=== PATIENT | male | born 1950 | race Caucasian/White ===

== ENCOUNTER 2019-07-02 01:37 | Observation (INO) | payer OTHER, SELFPAY ==
--- NOTE | ~2019-07-02 | CT_ITS ---
EXAMINATION: CT abdomen pelvis w con DATE: 07/02/2019 05:19 INDICATION: Low abdominal pain. TECHNIQUE: Computed tomography (CT) of the abdomen and pelvis was performed with 100 mL Omnipaque 350 intravenous contrast. Automated exposure control and iterative reconstruction technique were employe d. The dose-length product was 871.48 mGy-cm. COMPARISON: CT abdomen and pelvis 06/11/2010 FINDINGS: The visualized portions of the lung bases demonstrate emphysema and mild atelectasis. No pl eural effusion. Cardiomegaly is noted. No pericardial effusion. There are changes of cholecystectomy. There is mild intrahepatic biliary duct dilatation. The common duct is dilated to 19 mm, worsened fr om 14 mm on 06/11/2010. A filling defect in the distal common duct is likely a stone. The pancreas, sp aneudy, and right adrenal gland are normal. There are masses in the left adrenal gland without change m easuring up to 13 mm, consistent with adenomas. There are cysts of the kidneys measuring up to 3.9 cm on the left. Cortical thinning of the kidneys is noted. There is a right inguinal hernia containing a portion of the bladder. The appendix is normal. The terminal ileum is dilated and stool-filled. The re is a small volume of stool in the colon. There is a small sliding hiatal hernia with adjacent surg ical clips. There are no pathologically enlarged lymph nodes. There is no free intraperitoneal fluid. There is mild lumbar spondylosis. IMPRESSION: 1. Intrahepatic and extrahepatic biliary duct dilatation with filling defect in the distal common sheela t, which is likely a stone. 2. Right inguinal hernia containing a portion of the bladder. Reviewed, dictated and finalized at location A. IMPRESSION: 1. Intrahepatic and extrahepatic biliary duct dilatation with filling defect in the distal common duct, which is likely a stone. 2. Right inguinal hernia containing a portion of the bladder.
--- NOTE | ~2019-07-02 | MR_ITS ---
EXAMINATION: MR MRCP wo/w con/w 3D wo ind DATE: 07/02/2019 16:01 INDICATION: Abdominal pain TECHNIQUE: Magnetic resonance imaging (MRI) of the abdomen was performed without and with intravenous contrast. Sequences included coronal T2-weighted SS-FSE ARC, coronal T2-weighted FS SS-FSE, coronal T2-weighted 2D FS FIESTA, Water:Coronal LAVA-Flex, sagittal T2-weighted SS-FSE ARC, axial SSFSE ARC, axial 3D DualEcho, axial DWI B=600, axial T1-weighted LAVA, FAT:Coronal LAVA-Flex, and coronal in and opposed phase LAVA-Flex. Thick-slab T2-weighted FRFSE-XL images were obtained for magnetic resonance cholangiopancreatography (MRCP). Maximum intensity projection 3-D reconstructions of the volumetric data were created by the technologist. Postcontrast sequences included a time course of axial T1-weig hted LAVA, FAT:Coronal LAVA-Flex, coronal in and opposed phase LAVA-Flex, and Water:Coronal LAVA-Flex . COMPARISON: 07/20/[address] from today CONTRAST: Multihance, 18 cc FINDINGS: ABDOMEN MRI: There is a small sliding hiatal hernia. Cardiomegaly is noted. The gallbladder is surgic ally absent. The liver, spleen, and pancreas are normal. Bilateral adrenal masses demonstrate loss of signal intensity on opposed phase images, consistent with cysts. Cysts of the kidneys measure up to 3.8 cm on the left. There are no pathologically enlarged abdominal lymph nodes. ABDOMEN MRCP: MRCP sequences are limited by respiratory motion artifact. There is no stone or strictu re of the common bile duct. The pancreatic duct is normal in course and caliber. The common bile duct measures up to 16 mm. IMPRESSION: 1. Chronic enlargement of the common bile duct without stone or stricture. Reviewed, dictated and finalized at location A.
[2019-07-02 01:42] VITALS: BP 137/75; PULSE 60; RESP 20; TEMP 36.3; O2SAT 98
[2019-07-02 02:39] LABS: Basophils Absolute Auto 0.1 K/mm3 (0.0-0.1); Basophils Percent Auto 0.5 % (0.2-1.2); Eosinophils Absolute Auto 0.2 K/mm3 (0-0.3); Eosinophils Percent Auto 1.3 % (0-4.4); Hematocrit 42.5 % (42.0-52.0); Hemoglobin 13.5 g/dL (14.0-18.0); Immature Granulocyte Absolute 0.07 K/mm3 (0.00-0.031); Immature Granulocyte Percent A 0.6 % (0-0.5); Lymphocytes Absolute Auto 1.18 K/mm3 (0.9-3.2); Lymphocytes Percent Auto 10.1 % (18.3-44.2); Mean Corpuscular HGB Conc 31.8 g/dl (32-36); Mean Corpuscular Volume 97.7 fl (80-100); Mean Platelet Volume 10.6 fl (7.4-10.4); Monocytes Absolute Auto 0.7 K/mm3 (0.1-0.6); Monocytes Percent Auto 5.6 % (2.6-8.5); Neutrophils Absolute Auto 9.6 K/mm3 (1.3-6.7); Neutrophils Percent Auto 81.9 % (45.5-73.1); Platelet Count Result 197 k/mm3 (150-375); Red Blood Count 4.35 M/mm3 (4.6-6.20); Red Cell Distribution Width 12.4 % (11.5-14.5); White Blood Count 11.7 K/mm3 (4.5-10.0)
[2019-07-02 02:44] LABS: Add Urine Microscopic? YES; Appearance Urine Clear (Clear); Bacteria Urine Trace /hpf; Bilirubin Urine Negative (Negative); Blood Urine Negative (Negative); Color Urine Yellow (Yellow); Glucose Urine UA Negative (Negative); Ketones Urine Negative (Negative); Leukocyte Esterase Ur Negative LEU/UL (Negative); Mucus Urine Rare /lpf; Nitrate Urine Negative (Negative); Protein Urine Negative (Negative); RBC Urine 0-2 /hpf (0-2); Specific Grav Ur 1.014 (1.001-1.035); Squamous Epithelial Cell Urine Rare /hpf (Few); Urobilinogen Urine Negative mg/dL (<2.0); WBC Urine 0-3 /hpf
[2019-07-02 02:51] LABS: Alanine Aminotransferase 184 U/L (4-50); Albumin Level 4.2 g/dL (3.5-5.1); Alkaline Phosphatase 196 U/L (38-126); Aspartate Amino Transferase 346 U/L (17-59); Bilirubin,Total 0.8 mg/dL (0.2-1.3); Blood Urea Nitrogen 25 mg/dL (9-20); Calcium 8.7 mg/dL (8.4-10.2); Carbon Dioxide 25 mmol/L (22-30); Chloride 109 mmol/L (98-107); Estimated Glomerular Filt Rate 43; Glucose 182 mg/dL (75-110); Lipase 147 U/L (23-300); Potassium 5.2 mmol/L (3.4-5.0); Sodium 139 mmol/L (137-145)
[2019-07-02] MEDS: PANTOPRAZOLE SODIUM IV 40 MG VIAL IV PUSH ×2 (04:49→20:50)
[2019-07-02] MEDS: HYDROMORPHONE HCL 1 MG/ML INJ IV PUSH (04:49)
[2019-07-02] MEDS: LACTATED RINGERS 1,000 ML 999 ML IV CONT (04:49)
[2019-07-02] MEDS: ONDANSETRON INJ 4 MG/2 ML VIAL IV PUSH ×4 (04:50→20:18)
--- NOTE | 2019-07-02 05:01 | ED.ABDPAIN ---
HPI - Abdominal Pain General Chief Complaint: Abdominal Pain Stated Complaint: abd pain Time Seen by Provider: 07/02/19 04:33 Source: patient Mode of arrival: ambulatory Limitations: no limitations History of Present Illness HPI narrative: This patient is 69 yo male who presents with c/o upper abdominal pain. Patient states he developed pain shortly after eating yesterday afternoon. He has been having constant pain but it worsens intermittently. He describes his pain as cramping. He denies nausea, vomiting, fever, or diarrhea. His last bowel movement was prior to his pain starting. He denies having similar pain in the past. MD elicited complaint: abdominal pain Onset (ago): day(s) Related Data Allergies Allergy/AdvReac Type Severity Reaction Status Date / Time No Known Allergies Allergy Verified 10/19/18 11:54 Review of Systems Review of Systems: All systems reviewed & are unremarkable except as noted in HPI and below Constitutional: Constitutional: Denies chills and Denies fever(s) Cardiovascular: Cardiovascular: Denies chest pain and Denies radiating jaw, neck or arm pain Respiratory: Respiratory: Denies cough and Denies dyspnea Gastrointestinal: Gastrointestinal: Reports abdominal pain, Denies constipation, Denies diarrhea, Denies nausea and Denies vomiting Genitourinary: Genitourinary: Denies hematuria and Denies oliguria [facility] Past Medical History Medical History (Updated 07/02/19 @ 06:43 by Sera Noel MD) History of gastric ulcer Surgical History Surgical History (Updated 07/02/19 @ 05:05 by Sera Noel MD) Hx of cholecystectomy Family History Family History (Updated 04/14/10 @ 08:02 by DOCTOR UNKNOWN) Other Diabetes mellitus Family history of Parkinson's disease Family history of malignant neoplasm of bone Social History Social History Smoking status: Former smoker Second hand tobacco smoke exposure: No Alcohol intake: never Exam Narrative: Exam Narrative: GENERAL: Well-appearing, well-nourished, mild distress HEAD: Normocephalic, atraumatic EYES: PERRLA and EOMI, conjunctiva clear without discharge THROAT:Mucous membranes moist, NECK: Supple, without lymphadenopathy or mass RESPIRATORY: No respiratory distress, Airway patent, Respirations non-labored, Clear to auscultation without rales, rhonchi or wheeze HEART: Regular rate and rhythm. No murmur heard. Normal peripheral pulses. ABDOMEN: Soft, Distended, diffusedly tender, hypoactive bowel sounds. No masses. No rebound or guarding, No organomegaly. EXTREMITIES: No edema, normal strength with full range of motion. SKIN: Warm, dry, normal color without rash NEURO: Alert and oriented x3. CN 2-12 grossly intact. No focal deficits. PSYCH: Normal mood and affect. Course Reevaluation(s) Reevaluation #1: Patient states his pain has completely resolved. He has no abdominal tenderness. I Discussed plan to admit and he is agreeable to assess common bile duct. Date: 07/02/19 Time: 06:44 Consultations Consultation #1: I discussed labs and CT report with Dr. Shukla who recommends patient be admitted for MRCP . He will see patient and determine if she needs ERCP. Date: 07/02/19 Time: 06:33 Consultation #2: I discussed case with DR. Escamilla who accepts patient to service. Date: 07/02/19 Time: 06:41 Vital Signs Vital signs: Vital Signs Temperature 97.4 F L 07/02/19 01:42 Pulse Rate 60 07/02/19 01:42 Respiratory Rate 20 07/02/19 01:42 Blood Pressure 137/75 07/02/19 01:42 Pulse Oximetry 98 07/02/19 01:42 Temperature 97.4 F L 07/02/19 01:42 Pulse Rate 90 07/02/19 07:25 Respiratory Rate 18 07/02/19 07:25 Blood Pressure 167/86 H 07/02/19 07:25 Pulse Oximetry 98 07/02/19 07:25 MDM - Abdominal Pain Lab Data Attestation: I reviewed the patient's lab results. Result diagrams: 07/02/19 02:32 07/02/19 02:32 Labs: Lab Results
[2019-07-02] MEDS: LACTATED RINGERS 1,000 ML 125 ML IV CONT (07:24)
[2019-07-02 07:25] VITALS: BP 167/86; PULSE 90; RESP 18; O2SAT 98
--- NOTE | 2019-07-02 07:25 | PC.NURSE ---
pt vomiting. ed okay with repeating zofran iv at this time
[2019-07-02 08:30] VITALS: BP 140/70; PULSE 93; RESP 18; TEMP 36.5; O2SAT 96; BMI 30.2
--- NOTE | 2019-07-02 08:30 | ADMGEN ---
This patient, Cyril Griffin, was admitted to Medical Room 247-. Patient/family oriented to hospital policies and general routines including ID bracelet, bed and alarms, visiting hours, pain management, procedures, bathroom and other care routines, personal items, smoking policy, room service/diet, and visiting hours. Valuables list has been completed. Information on how to activate the Rapid Response Team has been discussed. Patient/Family are encouraged to report perceived risks to care and to ask questions if they do not understand what they are told or what they should do.
--- NOTE | 2019-07-02 09:04 | PM.IMHP ---
H&P: HPI History of Present Illness Chief complaint: right upper abdominal pain/elevated lft Narrative: Cyril Griffin is a 69 year old male was in his usual state of health until about 60-90 minutes after eating lunch at 12:30 p.m. on 06/30. Between 130 and 2:00 p.m. he experienced moderate to severe epigastric to right upper quadrant pain without radiation. Persisted for about 1 hour. No aggravating or alleviating factors noted. Deep aching pain. Associated with drenching sweats. Pain recurred and about 7:00 p.m.. Again moderate to severe. Persisted about 1 hour. Again 11:00 p.m. the pain recurred. This time it persisted and intensified to 11/29. At 1:30 a.m. he his brought him the emergency department. Pain resolved after IV analgesics. He had a cholecystectomy about 2009. Pain is similar to that pain but does not radiate to the back. History of peptic ulcer disease at age 23 for which she had surgery. Pain is not similar to that. No recent change in bowel or bladder function. No melena hematochezia dysuria or hematuria. No recent change in appetite or weight. Review of Systems Review of Systems: All systems reviewed & are unremarkable except as noted in HPI and below PMFSH Past Medical History Medical History (Updated 07/02/19 @ 09:20 by Sherman Sanchez MD) Adrenal adenoma CKD (chronic kidney disease) stage 3, GFR 30-59 ml/min History of gastrectomy 1963 for History of gastric ulcer 1963 Hypertension, essential Other and unspecified hyperlipidemia Surgical History Surgical History (Updated 07/02/19 @ 09:10 by Sherman Sanchez MD) H/O vagotomy 1963 for Hx of cholecystectomy Family History Family History (Updated 07/02/19 @ 09:10 by Sherman Sanchez MD) Father No problems noted. Mother No problems noted. Other Diabetes mellitus Family history of Parkinson's disease Family history of malignant neoplasm of bone Social History Social History (Updated 07/02/19 @ 09:11 by Sherman Sanchez MD) Smoking status: Former smoker Second hand tobacco smoke exposure: No Alcohol intake: former Substance use: never Living arrangements: with family Occupation/Education: retired Meds Home Medications and Allergies Home Medications Medication Instructions Recorded Confirmed Type lisinopril 5 mg tablet 2.5 mg PO DAILY #45 tablet 04/08/19 Rx rosuvastatin 10 mg tablet 10 mg PO DAILY #90 tablet 05/08/19 Rx Allergies Allergy/AdvReac Type Severity Reaction Status Date / Time No Known Allergies Allergy Verified 10/19/18 11:54 Vital Signs Vital Signs - 24 hr 07/02/19 01:42 07/02/19 07:25 Temperature 97.4 F L Pulse Rate 60 90 Respiratory Rate 20 18 Blood Pressure 137/75 167/86 H Pulse Oximetry 98 98 Exam Narrative: Exam Narrative: HEENT: EOMI, PERRL, sclerae nonicteric, pharyngeal mucosa pink and intact NECK: No JVD, adenopathy, or thyromegaly; carotid pulses intact w/o bruits CHEST: Clear to auscultation. Normal effort. HEART: NL S1/S2, regular, no murmur ABDOMEN: BS+ but hypoactive, soft, TENDER EPIGASTRIC TO RUQ EXTREMITIES: No cyanosis, edema, or clubbing, radial and DP pulses intact NEUROLOGIC: CN intact and symmetric to inspection. MUSCULOSKELETAL: Tone and strength symmetric. PSYCH: Alert. Oriented to person, place, and time. H&P: Results Labs Labs: Short CBC 07/02/19 Range/Units 02:32 WBC 11.7 H (4.5-10.0) K/mm3 Hgb 13.5 L (14.0-18.0) g/dL Hct 42.5 (42.0-52.0) % Plt Count 197 (150-375) k/mm3 BMP 07/02/19 02:32 Sodium 139 Potassium 5.2 H Chloride 109 H Carbon Dioxide 25 BUN 25 H Creatinine 1.60 H Glucose 182 H Calcium 8.7 Liver Function 07/02/19 Range/Units 02:32 Total Bilirubin 0.8 (0.2-1.3) mg/dL AST 346 H (17-59) U/L ALT 184 H (4-50) U/L Alkaline Phosphatase 196 H (38-126) U/L Albumin 4.2 (3.5-5.1) g/dL Urine 07/02/19 Range/U
--- NOTE | 2019-07-02 09:42 | WPDGICN ---
Assessment and Plan Assessment and plan (1) Abdominal pain, acute, right upper quadrant: Code(s): R10.11 - Right upper quadrant pain Status: Acute Assessment and Plan: Abdominal pain suspicious for colo lithiasis. Patient has a history of cholecystectomy [address] scan suggest common bile duct gallstone. Elevated liver function tests likely on this basis. Patient denies alcohol intake. (2) Elevated liver function tests: Code(s): R79.89 - Other specified abnormal findings of blood chemistry Status: Acute Assessment and Plan: With elevated LFTs will check for hepatitis. Likely related to abnormality seen on CT scan. (3) Abnormal CT scan: Code(s): R93.89 - Abnormal findings on diagnostic imaging of other specified body structures Status: Acute Assessment and Plan: CT scan suggest common bile duct dilatation. Possible common bile duct gallstone. MRCP will be performed today to evaluate more thoroughly ERCP may be required in the morning. GI Consult Note Consult date/time: 07/02/19 09:42 HPI: Cyril Griffin is a 69 year old male seen in evaluation at the request of the emergency room. Patient reports being in usual state of health till after lunch yesterday. He ate at approximately 12:30 p.m.. About 2:00 a.m. in began to have right upper quadrant pain. This pain fluctuated in intensity throughout the evening. This prompted him to go to the emergency room last night. This morning he continues to have some right mid epigastric discomfort. Patient has had some nausea in only few episodes of emesis. He denies a fever. Past medical history is significant for cholecystectomy approximately 10 years ago. He reports having had peptic ulcer in his 20s. He reports no change in his current bowel habits. Review of Systems Review of Systems: All systems reviewed & are unremarkable except as noted in HPI and below PMFSH Past Medical History Medical History Adrenal adenoma CKD (chronic kidney disease) stage 3, GFR 30-59 ml/min History of gastrectomy 1963 for History of gastric ulcer 1964 Hypertension, essential Other and unspecified hyperlipidemia Surgical History Surgical History H/O vagotomy 1963 for Hx of cholecystectomy Family History Family History Father No problems noted. Mother No problems noted. Other Diabetes mellitus Family history of Parkinson's disease Family history of malignant neoplasm of bone Social History Social History Smoking status: Former smoker Second hand tobacco smoke exposure: No Alcohol intake: former Substance use: never Living arrangements: with family Occupation/Education: retired Meds Home Medications and Allergies Home Medications Medication Instructions Recorded Confirmed Type lisinopril 5 mg tablet 2.5 mg PO DAILY #45 tablet 04/08/19 Rx rosuvastatin 10 mg tablet 10 mg PO DAILY #90 tablet 05/08/19 Rx Allergies Allergy/AdvReac Type Severity Reaction Status Date / Time No Known Allergies Allergy Verified 10/19/18 11:54 Vital Signs Vital Signs - 24 hr 07/02/19 01:42 07/02/19 07:25 07/02/19 08:30 Temperature 36.3 C L 36.5 C Pulse Rate 60 90 93 Respiratory Rate 20 18 18 Blood Pressure 137/75 167/86 H 140/70 Pulse Oximetry 98 98 96 Exam Narrative: Exam Narrative: Physical exam reveals patient to be alert. Vital signs are stable. HEENT exam reveals him to be anicteric. Lungs are clear to auscultation and percussion. Heart is without murmur. Abdomen is bowel sounds are present. Abdomen is soft. There is mild tenderness in the right mid epigastric area. No masses are appreciated. Nor guarding or rebound. Results La
[2019-07-02 09:59] LABS: Hematocrit 40.7 % (42.0-52.0); Hemoglobin 13.1 g/dL (14.0-18.0); Mean Corpuscular HGB Conc 32.2 g/dl (32-36); Mean Corpuscular Hemoglobin 31.2 pg (26-34); Mean Corpuscular Volume 96.9 fl (80-100); Mean Platelet Volume 10.7 fl (7.4-10.4); Platelet Count Result 166 k/mm3 (150-375); Red Cell Distribution Width 12.5 % (11.5-14.5); White Blood Count 12.4 K/mm3 (4.5-10.0)
[2019-07-02 10:33] LABS: Alanine Aminotransferase 707 U/L (4-50); Albumin Level 3.9 g/dL (3.5-5.1); Alkaline Phosphatase 288 U/L (38-126); Bilirubin,Total 1.7 mg/dL (0.2-1.3); Blood Urea Nitrogen 24 mg/dL (9-20); Calcium 8.4 mg/dL (8.4-10.2); Carbon Dioxide 20 mmol/L (22-30); Chloride 110 mmol/L (98-107); Estimated CRCL calculation 54 ml/min; Estimated Glomerular Filt Rate 55; Glucose 205 mg/dL (75-110); Potassium 5.1 mmol/L (3.4-5.0); Sodium 138 mmol/L (137-145)
[2019-07-02 10:55] LABS: Aspartate Amino Transferase 1073 U/L (17-59)
[2019-07-02 13:37] LABS: Hematocrit 39.7 % (42.0-52.0); Mean Corpuscular HGB Conc 32.7 g/dl (32-36); Mean Corpuscular Hemoglobin 31.5 pg (26-34); Mean Corpuscular Volume 96.1 fl (80-100); Mean Platelet Volume 10.6 fl (7.4-10.4); Platelet Count Result 174 k/mm3 (150-375); Red Blood Count 4.13 M/mm3 (4.6-6.20); Red Cell Distribution Width 12.5 % (11.5-14.5); White Blood Count 14.3 K/mm3 (4.5-10.0)
[2019-07-02 13:58] LABS: Albumin Level 3.9 g/dL (3.5-5.1); Alkaline Phosphatase 335 U/L (38-126); Bilirubin,Total 1.5 mg/dL (0.2-1.3); Blood Urea Nitrogen 23 mg/dL (9-20); Calcium 8.6 mg/dL (8.4-10.2); Carbon Dioxide 23 mmol/L (22-30); Chloride 108 mmol/L (98-107); Estimated CRCL calculation 54 ml/min; Estimated Glomerular Filt Rate 55; Glucose 201 mg/dL (75-110); Potassium 4.3 mmol/L (3.4-5.0); Sodium 138 mmol/L (137-145)
[2019-07-02 14:00] VITALS: BP 137/77; PULSE 85; RESP 17; TEMP 36.7; O2SAT 95
[2019-07-02 14:31] LABS: Alanine Aminotransferase 990 U/L (4-50); Aspartate Amino Transferase 1255 U/L (17-59)
[2019-07-02 15:48] LABS: Hepatitis B Surface Antigen Negative (Negative)
[2019-07-02 15:53] LABS: HAV RESULT Negative (Negative)
[2019-07-02 16:06] LABS: Hepatitis C Virus Antibody Negative (Negative)
[2019-07-02] MEDS: FAMOTIDINE 20 MG/2 ML VIAL IV PUSH (19:24)
[2019-07-02 22:00] VITALS: BP 161/64; PULSE 57; RESP 20; TEMP 36.2; O2SAT 95
[2019-07-03] MEDS: LACTATED RINGERS 1,000 ML 125 ML IV CONT (01:43)
[2019-07-03] MEDS: ONDANSETRON INJ 4 MG/2 ML VIAL IV PUSH (01:49)
[2019-07-03 05:25] LABS: Alanine Aminotransferase 718 U/L (4-50); Albumin Level 3.8 g/dL (3.5-5.1); Alkaline Phosphatase 262 U/L (38-126); Aspartate Amino Transferase 472 U/L (17-59); Bilirubin,Total 0.4 mg/dL (0.2-1.3); Blood Urea Nitrogen 24 mg/dL (9-20); Calcium 8.6 mg/dL (8.4-10.2); Carbon Dioxide 23 mmol/L (22-30); Chloride 109 mmol/L (98-107); Estimated CRCL calculation 50 ml/min; Estimated Glomerular Filt Rate 50; Glucose 154 mg/dL (75-110); Lipase 63 U/L (23-300); Potassium 4.3 mmol/L (3.4-5.0); Sodium 138 mmol/L (137-145)
[2019-07-03 05:31] LABS: Basophils Percent Auto 0.2 % (0.2-1.2); Hematocrit 36.7 % (42.0-52.0); Immature Granulocyte Absolute 0.09 K/mm3 (0.00-0.031); Immature Granulocyte Percent A 0.6 % (0-0.5); Lymphocytes Absolute Auto 0.93 K/mm3 (0.9-3.2); Lymphocytes Percent Auto 5.9 % (18.3-44.2); Mean Corpuscular HGB Conc 32.7 g/dl (32-36); Mean Corpuscular Hemoglobin 31.2 pg (26-34); Mean Corpuscular Volume 95.3 fl (80-100); Mean Platelet Volume 11.2 fl (7.4-10.4); Monocytes Absolute Auto 0.8 K/mm3 (0.1-0.6); Monocytes Percent Auto 4.8 % (2.6-8.5); Neutrophils Absolute Auto 13.9 K/mm3 (1.3-6.7); Neutrophils Percent Auto 88.5 % (45.5-73.1); Platelet Count Result 193 k/mm3 (150-375); Red Blood Count 3.85 M/mm3 (4.6-6.20); Red Cell Distribution Width 12.6 % (11.5-14.5); White Blood Count 15.7 K/mm3 (4.5-10.0)
[2019-07-03 05:50] VITALS: BP 169/79; PULSE 50; RESP 16; TEMP 36.8; O2SAT 96
[2019-07-03 08:00] VITALS: PULSE 75; RESP 16; O2SAT 97
[2019-07-03 08:52] VITALS: BP 158/68; PULSE 75; RESP 16; O2SAT 97
[2019-07-03] MEDS: PANTOPRAZOLE SODIUM IV 40 MG VIAL IV PUSH (08:57)
--- NOTE | 2019-07-03 09:07 | PM.IMPN ---
Subjective Date/time seen: 07/03/19 09:07 Objective Data Vital Signs Vital Signs: Vital Signs - 24 hr 07/02/19 14:00 07/02/19 22:00 07/03/19 05:50 Temperature 98.0 F 97.2 F L 98.3 F Pulse Rate 85 57 L 50 L Respiratory Rate 17 20 16 Blood Pressure 137/77 161/64 H 169/79 H Pulse Oximetry 95 95 96 07/03/19 08:52 Temperature Pulse Rate 75 Respiratory Rate 16 Blood Pressure 158/68 H Pulse Oximetry 97 Intake/Output Intake/Output: Intake & Output 06/30/19 07/01/19 07/02/19 07/03/19 23:59 23:59 23:59 23:59 Intake Total 2300 150 Output Total 400 Balance 2300 -250 Meds/Results Medications: Active Medications Generic Name Dose Route Start Last Admin Trade Name Freq PRN Reason Stop Dose Admin Hydralazine HCl 10 mg 07/02/19 09:23 Apresoline Hcl Inj IV PUSH Q8H PRN Blood Pressure - High Hydromorphone HCl 1 mg 07/02/19 06:45 Dilaudid Inj IV PUSH Q4H PRN Pain Rated 7-10 Lactated Ringer's 1,000 mls @ 125 mls/hr 07/02/19 06:45 07/03/19 01:43 Lr - Lactated Ringers Iv IV CONT 125 mls/hr .Q8H DESTINY Administration Ceftriaxone Sodium/Dextrose 1 gm in 50 mls @ 100 mls/hr 07/02/19 09:00 07/03/19 08:56 Rocephin 1 Gm/D5w 50 Ml IVPB 100 mls/hr Q24H DESTINY Administration Ondansetron HCl 4 mg 07/02/19 06:45 07/03/19 01:49 Zofran Inj IV PUSH 4 mg Q4H PRN Administration Nausea Pantoprazole Sodium 40 mg 07/02/19 21:00 07/03/19 08:57 Protonix Iv IV PUSH 40 mg Q12HR DESTINY Administration Radiology Results: ITS Impressions Abdomen/Pelvis CT 07/02/19 07:27 IMPRESSION: 1. Intrahepatic and extrahepatic biliary duct dilatation with filling defect in the distal common duct, which is likely a stone. 2. Right inguinal hernia containing a portion of the bladder. MRCP 07/02/19 16:11 IMPRESSION: 1. Chronic enlargement of the common bile duct without stone or stricture. Labs Labs: Laboratory Results - last 24 hr 07/02/19 07/02/19 07/02/19 09:32 09:32 13:26 WBC 12.4 H 14.3 H RBC 4.20 L 4.13 L Hgb 13.1 L 13.0 L Hct 40.7 L 39.7 L MCV 96.9 96.1 MCH 31.2 31.5 MCHC 32.2 32.7 RDW 12.5 12.5 Plt Count 166 174 MPV 10.7 H 10.6 H Immature Gran % (Auto) Neut % (Auto) Lymph % (Auto) [place] % (Auto) Eos % (Auto) Baso % (Auto) Lymph # (Auto) [place] # (Auto) Eos # (Auto) Baso # (Auto) Abs Immat Gran (auto) Absolute Neuts (auto) Absolute Nucleated RBC Nucleated RBC % Sodium 138 Potassium 5.1 H Chloride 110 H Carbon Dioxide 20 L BUN 24 H Creatinine 1.30 Estim Creat Clear Calc 54 Estimated GFR 55 L Glucose 205 H Calcium 8.4 Total Bilirubin 1.7 H AST 1073 H ALT 707 H Alkaline Phosphatase 288 H Total Protein 7.0 Albumin 3.9 Lipase Hepatitis A IgM Ab Hep Bs Antigen Hepatitis C Ab Screen 07/02/19 07/02/19 07/03/19 13:26 13:26 04:43 WBC 15.7 H RBC 3.85 L Hgb 12.0 L Hct 36.7 L MCV 95.3 MCH 31.2 MCHC 32.7 RDW 12.6 Plt Count 193 MPV 11.2 H Immature Gran % (Auto) 0.6 H Neut % (Auto) 88.5 H Lymph % (Auto) 5.9 L [place] % (Auto) 4.8 Eos % (Auto) 0.0 Baso % (Auto) 0.2 Lymph # (Auto) 0.93 [place] # (Auto) 0.8 H Eos # (Auto) 0.0 Baso # (Auto) 0.0 Abs Immat Gran (auto) 0.09 H Absolute Neuts (auto) 13.9 H Absolute Nucleated RBC 0.0 Nucleated RBC % 0.0 Sodium 138 Potassium 4.3 Chloride 108 H Carbon Dioxide 23 BUN 23 H Creatinine 1.30 Estim Creat Clear Calc 54 Estimated GFR 55 L Glucose 201 H Calcium 8.6 Total Bilirubin 1.5 H AST 1255 H ALT 990 H Alkaline Phosphatase 335 H Total Protein 7.0 Albumin 3.9 Lipase Hepatitis A IgM Ab Negative Hep Bs Antigen Negative Hepatitis C Ab Screen Negative 07/03/19 04:43 WBC RBC Hgb Hct MCV MCH MC
--- NOTE | 2019-07-03 09:10 | WPDGIPROGNO ---
Progress Note: A&P Additional Plan Patient feeling better this morning. Physical exam reveals patient to be obese. Bowel sounds are present soft much less tender. MRCP today reveals no evidence of common bile duct gallstone. There is evidence of previous gastrojejunostomy on x-ray studies. Impression 1. Elevated LFTs. May represent hepatitis. No evidence of gallstones by MRCP. Previous gastrojejunostomy makes ERCP not feasible. MRCP with absence of gallstones make this a necessary. Plan is to check hepatitis serologies increase diet. Follow up LFTs as an outpatient. Subjective Date/time seen: 07/03/19 09:10 Objective Data Vital Signs Vital Signs: Vital Signs - 24 hr 07/02/19 14:00 07/02/19 22:00 07/03/19 05:50 Temperature 36.7 C 36.2 C L 36.8 C Pulse Rate 85 57 L 50 L Respiratory Rate 17 20 16 Blood Pressure 137/77 161/64 H 169/79 H Pulse Oximetry 95 95 96 07/03/19 08:52 Temperature Pulse Rate 75 Respiratory Rate 16 Blood Pressure 158/68 H Pulse Oximetry 97 Intake/Output Intake/Output: Intake & Output 06/30/19 07/01/19 07/02/19 07/03/19 23:59 23:59 23:59 23:59 Intake Total 2300 150 Output Total 400 Balance 2300 -250 Meds/Results Medications: Active Medications Generic Name Dose Route Start Last Admin Trade Name Freq PRN Reason Stop Dose Admin Famotidine 40 mg 07/03/19 09:07 Pepcid Iv IV PUSH 07/03/19 09:08 ONCE ONE Hydralazine HCl 10 mg 07/02/19 09:23 Apresoline Hcl Inj IV PUSH Q8H PRN Blood Pressure - High Hydromorphone HCl 1 mg 07/02/19 06:45 Dilaudid Inj IV PUSH Q4H PRN Pain Rated 7-10 Lactated Ringer's 1,000 mls @ 125 mls/hr 07/02/19 06:45 07/03/19 01:43 Lr - Lactated Ringers Iv IV CONT 125 mls/hr .Q8H DESTINY Administration Ceftriaxone Sodium/Dextrose 1 gm in 50 mls @ 100 mls/hr 07/02/19 09:00 07/03/19 08:56 Rocephin 1 Gm/D5w 50 Ml IVPB 100 mls/hr Q24H DESTINY Administration Ondansetron HCl 4 mg 07/02/19 06:45 07/03/19 01:49 Zofran Inj IV PUSH 4 mg Q4H PRN Administration Nausea Pantoprazole Sodium 40 mg 07/02/19 21:00 07/03/19 08:57 Protonix Iv IV PUSH 40 mg Q12HR DESTINY Administration Radiology Results: ITS Impressions Abdomen/Pelvis CT 07/02/19 07:27 IMPRESSION: 1. Intrahepatic and extrahepatic biliary duct dilatation with filling defect in the distal common duct, which is likely a stone. 2. Right inguinal hernia containing a portion of the bladder. MRCP 07/02/19 16:11 IMPRESSION: 1. Chronic enlargement of the common bile duct without stone or stricture. Labs Labs: Laboratory Results - last 24 hr 07/02/19 07/02/19 07/02/19 09:32 09:32 13:26 WBC 12.4 H 14.3 H RBC 4.20 L 4.13 L Hgb 13.1 L 13.0 L Hct 40.7 L 39.7 L MCV 96.9 96.1 MCH 31.2 31.5 MCHC 32.2 32.7 RDW 12.5 12.5 Plt Count 166 174 MPV 10.7 H 10.6 H Immature Gran % (Auto) Neut % (Auto) Lymph % (Auto) [place] % (Auto) Eos % (Auto) Baso % (Auto) Lymph # (Auto) [place] # (Auto) Eos # (Auto) Baso # (Auto) Abs Immat Gran (auto) Absolute Neuts (auto) Absolute Nucleated RBC Nucleated RBC % Sodium 138 Potassium 5.1 H Chloride 110 H Carbon Dioxide 20 L BUN 24 H Creatinine 1.30 Estim Creat Clear Calc 54 Estimated GFR 55 L Glucose 205 H Calcium 8.4 Total Bilirubin 1.7 H AST 1073 H ALT 707 H Alkaline Phosphatase 288 H Total Protein 7.0 Albumin 3.9 Lipase Hepatitis A IgM Ab Hep Bs Antigen Hepatitis C Ab Screen 07/02/19 07/02/19 07/03/19 13:26 13:26 04:43 WBC 15.7 H RBC 3.85 L Hgb 12.0 L Hct 36.7 L MCV 95.3 MCH 31.2 MCHC 32.7 RDW 12.6 Plt Count 193 MPV 11.2 H Immature Gran % (Auto) 0.6 H Neut % (Auto) 88.5 H Lymph % (Auto) 5.9 L [place] % (Auto) 4.8 Eos % (Auto) 0.0 Baso % (Auto) 0.2 [place]
--- NOTE | 2019-07-03 10:56 | PM.DS ---
DS: Summary Hospital Course Reason for hospitalization: ruq pain Hospital Course: RUQ pain with elevated LFTs. CT suggested dilated ducts. Prior janel. MRCP no stone. Presumably passed. Received rocephin empirically. LFTs declining. Discharged to f/u labs and w/ GI as outpt. Status at Discharge Functional status at discharge: independent ambulation Overall status at discharge: patient is progressing back to baseline Time Spent with Patient Time attestation: Total time spent providing and/or coordinating discharge services: Time spent: Greater than 30 minutes Exam Narrative: Exam Narrative: Alert. Ox3. No jvd. Chest cta. Heart rr Abd soft, good bs, nontender extr no cce neuro cn intact to inspection ms tone and strength symmetric DS: Data Data Completed and Pending Labs on day of discharge: Labs from last 24 hours 07/03/19 07/03/19 07/02/19 04:43 04:43 13:26 WBC 15.7 H RBC 3.85 L Hgb 12.0 L Hct 36.7 L MCV 95.3 MCH 31.2 MCHC 32.7 RDW 12.6 Plt Count 193 MPV 11.2 H Immature Gran % (Auto) 0.6 H Neut % (Auto) 88.5 H Lymph % (Auto) 5.9 L [place] % (Auto) 4.8 Eos % (Auto) 0.0 Baso % (Auto) 0.2 Lymph # (Auto) 0.93 [place] # (Auto) 0.8 H Eos # (Auto) 0.0 Baso # (Auto) 0.0 Abs Immat Gran (auto) 0.09 H Absolute Neuts (auto) 13.9 H Absolute Nucleated RBC 0.0 Nucleated RBC % 0.0 Sodium 138 Potassium 4.3 Chloride 109 H Carbon Dioxide 23 BUN 24 H Creatinine 1.40 H Estim Creat Clear Calc 50 Estimated GFR 50 L Glucose 154 H Calcium 8.6 Total Bilirubin 0.4 AST 472 H ALT 718 H Alkaline Phosphatase 262 H Total Protein 6.0 L Albumin 3.8 Lipase 63 Hepatitis A IgM Ab Negative Hep Bs Antigen Negative Hepatitis C Ab Screen Negative 07/02/19 07/02/19 13:26 13:26 WBC 14.3 H RBC 4.13 L Hgb 13.0 L Hct 39.7 L MCV 96.1 MCH 31.5 MCHC 32.7 RDW 12.5 Plt Count 174 MPV 10.6 H Immature Gran % (Auto) Neut % (Auto) Lymph % (Auto) [place] % (Auto) Eos % (Auto) Baso % (Auto) Lymph # (Auto) [place] # (Auto) Eos # (Auto) Baso # (Auto) Abs Immat Gran (auto) Absolute Neuts (auto) Absolute Nucleated RBC Nucleated RBC % Sodium 138 Potassium 4.3 Chloride 108 H Carbon Dioxide 23 BUN 23 H Creatinine 1.30 Estim Creat Clear Calc 54 Estimated GFR 55 L Glucose 201 H Calcium 8.6 Total Bilirubin 1.5 H AST 1255 H ALT 990 H Alkaline Phosphatase 335 H Total Protein 7.0 Albumin 3.9 Lipase Hepatitis A IgM Ab Hep Bs Antigen Hepatitis C Ab Screen Discharge Plan Discharge Consulting providers: Ishaan Shukla ; Dom Addison ; Arnel Wren V. Discharging Clinician: Sherman Sanchez Patient Disposition: Home, Self-Care Activity: as tolerated Diet: heart healthy Patient Instructions: Antibiotic Form, Pain Management (GEN) Stand Alone Forms: General Discharge Information Follow-up/Referrals: Ishaan Shukla MD [Physician] - 1 Week Scooter Reyes MD [Primary Care Provider] - Call for Appointment Discharge Medications: Continued nabumetone 750 mg tablet 750 mg PO BID RF: 0 aspirin [Adult Low Dose Aspirin] 81 mg Tablet,Delayed Release (Dr/Ec) 81 mg PO DAILY RF: 0 esomeprazole magnesium 40 mg capsule,delayed release(DR/EC) 40 mg PO DAILY RF: 0 lisinopril 5 mg tablet 2.5 mg PO DAILY Qty: 45 RF: 3 rosuvastatin [Crestor] 10 mg tablet 10 mg PO DAILY Qty: 90 RF: 0 No Action carvedilol phosphate 40 mg capsule, ER multiphase 24 hr 40 mg PO DAILY Qty: 90 RF: 1 Other Ambulatory Orders: Eviro-[id number]-[id number] (AAT) Phen (Routine) Timeframe: 1 Week Location: Determined by Patient Ordered By: Ishaan Shukla Anti Nuclear Antibody Screen (Routine) Timeframe: 1 Week Location: Determined by Patient Ordered By: Ishaan Shukla Anti Henry Antibody (Rou
== END 2019-07-03 12:30 | disposition home or self-care (01) ==
LOC: ANHED 06:47 → ANH2MED 09:50
PROVIDERS: Admitting Provider Family Medicine; Emergency Provider General Practice; PCP Family Medicine; Visit Provider Internal Medicine
DX: R10.11 Right upper quadrant pain (principal); R79.89 Other specified abnormal findings of blood chemistry; R93.89 Abnormal findings on diagnostic imaging of other specified body structures; I12.9 Hypertensive chronic kidney disease with stage 1 through stage 4 chronic kidney disease, or unspecified chronic kidney disease; N18.3 Chronic kidney disease, stage 3 (moderate); E78.5 Hyperlipidemia, unspecified; D35.00 Benign neoplasm of unspecified adrenal gland; E66.9 Obesity, unspecified; Z68.30 Body mass index [BMI] 30.0-30.9, adult; Z79.899 Other long term (current) drug therapy
CPT/HCPCS: 36415; 74177; 74183; 76376; 80053; 81001; 83690; 85025; 85027; 86709; 86803; 87340; 96361; 96365; 96366; 96375; 96376; 99285; A9577; C9113; G0378; J0696; J1170; J2405; J7120; Q9967

== ENCOUNTER 2020-09-28 11:40 | Outpatient (CLI) | payer MEDICARE, SELFPAY ==
--- NOTE | ~2020-09-28 | CT_ITS ---
EXAMINATION: CT abdomen pelvis wo con DATE: 09/28/2020 13:07 INDICATION: Abdominal pain TECHNIQUE: Computed tomography (CT) of the abdomen and pelvis was performed without intravenous contr ast. Automated exposure control and iterative reconstruction technique were employed. Exam dose: 832 .27 mGy-cm total exam DLP. COMPARISON: 07/02/2019 CT abdomen pelvis 07/02/2019 and MR MRCP FINDINGS: There are moderate emphysematous changes. There is mild dependent atelectasis in the lower lungs. Heart size is within normal range. There are prominent coronary artery calcifications. Small sliding hiatal hernia. There are surgical clips adjacent to the hiatal hernia. There is evidence of cholelithiasis and/or milk of calcium bile within the gallbladder lumen. There i s mild pericholecystic fat stranding. Acute cholecystitis is not excluded. Consider gallbladder ultra sound examination. No hepatic, splenic, pancreatic space-occupying mass lesion. Probable bilateral small adrenal adenomas. Bilateral renal probable cysts, measuring up to 1.5 cm on the right, 4.2 cm on the left. Normal appendix. Diverticulosis of the colon; no CT evidence of diverticulitis. No bowel obstruction, bowel wall thickening, pneumatosis or intraperitoneal free air. There is moderate prostate enlargement. There are multiple prostate calcifications. There is mild dif fuse thickening of the urinary bladder wall. Small fat-containing right inguinal hernia. Small fat-containing umbilical hernia. Normal caliber of the abdominal aorta. No intraperitoneal or retroperitoneal or pelvic mass lesion or adenopathy or ascites. No suspicious osteolytic or osteoblastic lesions are noted. IMPRESSION: Cholelithiasis and/or milk of calcium bile seminal mild pericholecystic fat stranding. A cute cholecystitis is not excluded. Consider gallbladder ultrasound examination Small sliding hiatal hernia Small bilateral probable adrenal adenomas Bilateral renal cysts Normal appendix Prostate enlargement and calcification Small fat-containing right inguinal hernia Reviewed, dictated and finalized at [facility]. Reviewed, dictated and finalized at [facility]. IMPRESSION: Cholelithiasis and/or milk of calcium bile seminal mild pericholec ystic fat stranding. Acute cholecystitis is not excluded. Consider gallbladder ultrasound examination Small sliding hiatal hernia Small bilateral probable adrenal adenomas Bilateral renal cysts Normal appendix Prostate enlargement and calcification Small fat-containing right inguinal hernia
[2020-09-28 12:43] LABS: Estimated Glomerular Filt Rate 27
== END 2020-09-28 11:41 | disposition home or self-care (01) ==
PROVIDERS: PCP Family Medicine; Visit Provider Physician Assistant Medical
DX: R10.9 Unspecified abdominal pain (principal); K44.9 Diaphragmatic hernia without obstruction or gangrene; N28.1 Cyst of kidney, acquired; N40.0 Benign prostatic hyperplasia without lower urinary tract symptoms; K40.90 Unilateral inguinal hernia, without obstruction or gangrene, not specified as recurrent; K80.20 Calculus of gallbladder without cholecystitis without obstruction
CPT/HCPCS: 74176

== ENCOUNTER 2020-09-28 17:13 | Emergency (ER) | payer MEDICARE, SELFPAY ==
[2020-09-28] VITALS (21 sets, daily range): BP systolic 166–188; BP diastolic 74–106; PULSE 56–83; RESP 18; TEMP 35.9; O2SAT 92–100
[2020-09-28 18:16] LABS: Basophils Absolute Auto 0.1 K/mm3 (0.0-0.1); Basophils Percent Auto 0.6 % (0.2-1.2); Eosinophils Absolute Auto 0.1 K/mm3 (0-0.3); Eosinophils Percent Auto 0.9 % (0-4.4); Hematocrit 40.8 % (42.0-52.0); Hemoglobin 13.4 g/dL (14.0-18.0); Immature Granulocyte Absolute 0.02 K/mm3 (0.00-0.031); Immature Granulocyte Percent A 0.2 % (0-0.5); Lymphocytes Percent Auto 10.3 % (18.3-44.2); Mean Corpuscular HGB Conc 32.8 g/dl (32-36); Mean Corpuscular Hemoglobin 32.1 pg (26-34); Mean Corpuscular Volume 97.8 fl (80-100); Mean Platelet Volume 10.1 fl (7.4-10.4); Monocytes Absolute Auto 0.7 K/mm3 (0.1-0.6); Monocytes Percent Auto 6.5 % (2.6-8.5); Neutrophils Absolute Auto 8.7 K/mm3 (1.3-6.7); Neutrophils Percent Auto 81.5 % (45.5-73.1); Platelet Count Result 228 k/mm3 (150-375); Red Blood Count 4.17 M/mm3 (4.6-6.20); Red Cell Distribution Width 11.8 % (11.5-14.5); White Blood Count 10.7 K/mm3 (4.5-10.0)
[2020-09-28 18:27] LABS: Alanine Aminotransferase 36 U/L (4-50); Albumin Level 4.7 g/dL (3.5-5.1); Alkaline Phosphatase 155 U/L (38-126); Anion Gap 10 mmol/L (8-16); Aspartate Amino Transferase 31 U/L (17-59); Bilirubin,Total 0.4 mg/dL (0.2-1.3); Blood Urea Nitrogen 36 mg/dL (9-20); Calcium 9.3 mg/dL (8.4-10.2); Carbon Dioxide 23 mmol/L (22-30); Chloride 100 mmol/L (98-107); Estimated CRCL calculation 25 ml/min; Estimated Glomerular Filt Rate 30; Glucose 134 mg/dL (65-110); Lipase 88 U/L (23-300); Potassium 5.1 mmol/L (3.4-5.0); Sodium 133 mmol/L (137-145)
[2020-09-28 18:49] LABS: Add Urine Microscopic? YES; Appearance Urine Clear (Clear); Bilirubin Urine Negative (Negative); Blood Urine Negative (Negative); Color Urine Straw (Yellow); Glucose Urine UA Negative (Negative); Ketones Urine 1+ mg/dL (Negative); Leukocyte Esterase Ur 1+ LEU/UL (Negative); Nitrate Urine Negative (Negative); Protein Urine Negative (Negative); RBC Urine 0-2 /hpf (0-2); Specific Grav Ur 1.012 (1.001-1.035); Squamous Epithelial Cell Urine Rare /hpf (Few); Urobilinogen Urine Negative mg/dL (<2.0)
--- NOTE | 2020-09-28 21:33 | ECG_ITS ---
Measurements Intervals Floyd Rate: 48 P: 62 SC: 165 QRS: -38 QRSD: 127 T: -8 QT: 427 QTc: 383 Interpretive Statements SINUS BRADYCARDIA LEFT AXIS DEVIATION IVCD, CONSIDER ATYPICAL LBBB BORDERLINE T WAVE ABNORMALITY- INFERIOR LEADS ABNORMAL ECG Electronically Signed On 09-29-2020 15:16:10 CDT by Tim Nathan D.O.
--- NOTE | 2020-09-28 21:51 | ED.ABDPAIN ---
HPI - Abdominal Pain General Chief Complaint: Abdominal Pain Stated Complaint: Abd pain Time Seen by Provider: 09/28/20 20:40 Source: patient and RN notes reviewed Mode of arrival: ambulatory Limitations: no limitations History of Present Illness HPI narrative: This is a 70 year old male who presents for evaluation of epigastric pain. His pain started last night at 7 pm, and it has been constant until tonight. He describes his pain as burning stomach with sharp shooting pain. He states his sharp pain has resolved but he continues to have burning pain. He was evaluated by his PCP this morning, and he had outpatient labs with CT without contrast. He states he was told it shows possible gallbladder disease but he had cholecystectomy years ago. He has not taken anything for his pain. He has nausea but he denies vomiting, diarrhea, fever, chest pain or shortness of breath. He denies pain worse with exertion. He is unsure if his pain will be worse with eating because he has not eaten today. He rates pain 5/10. Related Data Home Medications Medication Instructions Recorded Confirmed aspirin [Adult Low Dose Aspirin] 81 mg PO DAILY 07/02/19 09/28/20 Allergies Allergy/AdvReac Type Severity Reaction Status Date / Time No Known Allergies Allergy Verified 09/28/20 19:22 Review of Systems Review of Systems: All systems reviewed & are unremarkable except as noted in HPI and below PMFSH Past Medical History Medical History Adrenal adenoma BMI 30.0-30.9,adult BMI greater than 30 BPH (benign prostatic hyperplasia) CKD (chronic kidney disease) stage 3, GFR 30-59 ml/min History of gastrectomy 1963 for History of gastric ulcer 1963 Hypertension, essential Other and unspecified hyperlipidemia Surgical History Surgical History H/O vagotomy 1963 for Hx of cholecystectomy Family History Family History Father No problems noted. Mother No problems noted. Other Diabetes mellitus Family history of Parkinson's disease Family history of malignant neoplasm of bone Social History Social History Smoking packs per day: 3 Smoking cigarettes per day: 60.0 Years smoked: 40 Smoking pack-years: 120.00 Tobacco type: cigarettes Second hand tobacco smoke exposure: No Alcohol intake: former Substance use: never Substance use type: does not use Gender identity (if verbalized by the patient): Male Spiritual care concerns: No Exam Const: General: no acute distress and alert Orientation/consciousness: patient oriented x3 Eyes: EOM: EOMs intact bilaterally Chest: Chest palpation & inspection: normal inspection of the chest Resp: Effort & Inspection: normal respiratory effort and no retractions Auscultation: clear to auscultation bilaterally Cardio: Rate: regular rate Rhythm: regular rhythm Heart sounds: no murmurs GI: GI Palp: Yes Soft to palpation, No Tenderness to palpation present (GI) and No Guarding due to palpation present (GI) Auscultation: normal bowel sounds Skin: General skin exam: normal color Rashes: no rashes Neuro: General: patient oriented x3 and CN's II-XI intact bilaterally Psych: Mental Status: mental status grossly normal Affect: normal affect Course Reevaluation(s) Reevaluation #1: PAtient states he feels better. I Reviewed labs and he has chronic renal disease. He will follow up with PCP. I discussed this may be related to PUD. Date: 09/28/20 Time: 23:21 Vital Signs Vital signs: Vital Signs Temperature 96.7 F L 09/28/20 17:57 Pulse Rate 83 09/28/20 17:57 Respiratory Rate 18 09/28/20 17:57 Blood Pressure 166/106 H 09/28/20 17:57 Pulse Oximetry 100 09/28/20 17:57 Temperature 96.7 F L
[2020-09-28] MEDS: DICYCLOMINE HCL INJ 20 MG/2 ML VIAL IM (21:55)
[2020-09-28] MEDS: BELLADONNA ALK/PHENOB ELIX 10 ML, MAG HYDROX/ALUMINUM HYD/SIMETH 30 ML, LIDOCAINE HCL 2... PO (21:56)
[2020-09-28] MEDS: PANTOPRAZOLE SODIUM IV 40 MG VIAL IV PUSH (21:56)
[2020-09-28] MEDS: SODIUM CHLORIDE 0.9% IV 500 ML 999 ML IV CONT (21:56)
== END 2020-09-28 23:39 | disposition home or self-care (01) ==
PROVIDERS: Emergency Medicine; Emergency Provider General Practice; PCP Family Medicine
DX: R10.13 Epigastric pain (principal); Z79.82 Long term (current) use of aspirin; N40.0 Benign prostatic hyperplasia without lower urinary tract symptoms; I12.9 Hypertensive chronic kidney disease with stage 1 through stage 4 chronic kidney disease, or unspecified chronic kidney disease; N18.30 Chronic kidney disease, stage 3 unspecified; F17.210 Nicotine dependence, cigarettes, uncomplicated; R00.1 Bradycardia, unspecified; R94.31 Abnormal electrocardiogram [ECG] [EKG]
CPT/HCPCS: 36415; 74176; 80053; 81001; 83690; 85025; 93005; 96361; 96372; 96374; 99284; A9270; C9113; J0500; J7040

== ENCOUNTER → 2020-10-15 12:44 | Outpatient (CLI) | payer MEDICARE, SELFPAY ==
--- NOTE | ~2020-10-15 | US_ITS ---
EXAMINATION: US renal BI EXAM DATE: 10/15/2020 13:06 INDICATION: Chronic kidney disease, stage 3a. TECHNIQUE: Multiple grayscale and Doppler images of the kidneys were obtained (by a technologist who performed the scan) and subsequently reviewed. There is no prior study for comparison. FINDINGS: Prominent echogenic fat bilaterally, evidence of mild renal cortical thinning. Right kidney: There is normal contour and echogenicity. It measures 10.2 x 5.2 x 5.7 centimeters. An echoic 1.8 cm cyst. There is no hydronephrosis. Left kidney: There is normal contour and echogenicity. It measures 11.3 x 4.9 x 6.5 centimeters. Sev eral anechoic lesions consistent with cysts measuring up to 4.1 cm There is no hydronephrosis. Bladder unremarkable. IMPRESSION: 1. Mild renal cortical thinning. 2. Renal cysts. Reviewed, dictated and finalized at [facility].
== END ==
PROVIDERS: Visit Provider Internal Medicine Nephrology
DX: N18.31 Chronic kidney disease, stage 3a (principal); N28.1 Cyst of kidney, acquired
CPT/HCPCS: 76775

== ENCOUNTER 2020-11-17 11:26 | Outpatient (CLI) | payer MEDICARE, SELFPAY ==
--- NOTE | ~2020-11-17 | NM_ITS ---
EXAMINATION: NM renal flow and function DATE: 11/17/2020 12:37 INDICATION: Essential hypertension. Stage III chronic kidney disease. TECHNIQUE: 8.1 mCi Tc-99m MAG3 was administered IV. The patient was scanned in the supine position. A posterior abdominal radionuclide angiogram was obtained. A subsequent time course of static images of the kidneys, ureters, and bladder was obtained. COMPARISON: None FINDINGS: The posterior abdominal radionuclide angiogram and sequential static images show normal size, positio n, and morphology of the kidneys. Peak renal parenchymal uptake was 4.5 min in left kidney and 4.5 mi n in right kidney (normal peak 3-5 minutes). The relative early renal uptake was 33% on the left and 67% on the right (<40% is abnormal). No abnormalities of the ureters or bladder are seen. T1/2 for clearance of activity from the left kidney and proximal collecting system was 53 minutes. T1/2 for clearance of activity from the right kidney and proximal collecting system was 34 minutes. IMPRESSION: 1. Delayed contrast clearance from both kidneys, left greater than right, consistent with decreased renal function in both kidneys. 2. Left kidney contributing 33%) and right kidney 67% of total renal function. Reviewed, dictated and finalized at [facility]. IMPRESSION: 1. Delayed contrast clearance from both kidneys, left greater than right, cons istent with decreased renal function in both kidneys. 2. Left kidney contributing 33%) and right kidney 67% of total renal function.
== END 2020-11-17 11:27 | disposition home or self-care (01) ==
LOC: ANHIMG 11:30
PROVIDERS: PCP Family Medicine; Visit Provider Internal Medicine Nephrology
DX: I12.9 Hypertensive chronic kidney disease with stage 1 through stage 4 chronic kidney disease, or unspecified chronic kidney disease (principal); N18.31 Chronic kidney disease, stage 3a
CPT/HCPCS: 78707; A9562

== ENCOUNTER → 2022-06-16 12:38 | Outpatient (CLI) | payer MEDICARE, SELFPAY ==
--- NOTE | ~2022-06-16 | US_ITS ---
EXAMINATION: US renal BI DATE: 06/16/2022 13:01 INDICATION: Chronic kidney disease TECHNIQUE: Multiple grayscale and Doppler ultrasound images of the kidneys were obtained. COMPARISON: 10/15/2020 FINDINGS: The right kidney measures 10.4 x 5.4 x 4.7 cm and contains a 1.3 cm cyst. The left kidney m easures 11.3 x 4.9 x 4.2 cm and contains multiple cysts measuring up to 5 cm. The kidneys demonstrate normal parenchymal echogenicity. There is no hydronephrosis. The bladder is normal. IMPRESSION: 1. Cysts of the otherwise unremarkable kidneys without hydronephrosis. Reviewed, dictated and finalized at [facility].
== END ==
PROVIDERS: PCP Family Medicine; Visit Provider Internal Medicine Nephrology
DX: N18.32 Chronic kidney disease, stage 3b (principal); N28.1 Cyst of kidney, acquired
CPT/HCPCS: 76775

== ENCOUNTER 2022-08-10 10:38 | Emergency (ER) | payer MEDICARE, SELFPAY ==
[2022-08-10 10:50] VITALS: BP 179/59; PULSE 56; RESP 14; TEMP 36.7; O2SAT 97
--- NOTE | 2022-08-10 11:02 | ED.SKABFB ---
HPI - Skin/Abscess/Foreign Bdy General Chief complaint: Skin/Abscess/Foreign Body Stated complaint: Big Toe Rt Foot Time Seen by Provider: 08/10/22 10:54 Source: patient Mode of arrival: ambulatory Limitations: no limitations History of Present Illness HPI narrative: Patient presents today complaining of pain to the right 1st toe x2 weeks and redness surrounding the toenail x2 days. Patient has been soaking in hot water and using peroxide without relief. Related Data Home Medications Medication Instructions Recorded Confirmed aspirin 81 mg tablet,delayed 81 mg PO DAILY 07/02/19 08/10/22 release (Adult Low Dose Aspirin) cholecalciferol (vitamin D3) 125 125 mcg PO DAILY 07/15/21 08/10/22 mcg (5,000 unit) capsule vitamin E mixed 400 unit capsule 400 unit PO DAILY 07/15/21 08/10/22 Allergies Allergy/AdvReac Type Severity Reaction Status Date / Time No Known Allergies Allergy Verified 08/10/22 10:41 Review of Systems Review of Systems: CONSTITUTIONAL: Denies body aches, fever, chills, or sweats. EYES: Denies visual changes, redness, or discharge. ENT: Denies rhinorrhea, congestion, sore throat, or otalgia. CARDIOVASCULAR: Denies chest pain, palpitations, or edema. RESPIRATORY: Denies cough or dyspnea. GASTROINTESTINAL: Denies abdominal pain, nausea, vomiting, or diarrhea. GENITOURINARY: Denies dysuria or hematuria. SKIN: Denies rash, itching, or wounds.+ redness and pain to the right great toe MUSCULOSKELETAL: Denies back pain, joint pain, or myalgia. NEUROLOGIC: Denies headache, numbness, tingling, or weakness. PSYCH: Denies depression or anxiety. [facility] Past Medical History Medical History Adrenal adenoma BMI 30.0-30.9,adult BMI 31.0-31.9,adult BMI greater than 30 BPH (benign prostatic hyperplasia) CKD (chronic kidney disease) stage 3, GFR 30-59 ml/min History of gastrectomy 1963 for History of gastric ulcer 1964 Hypertension, essential Other and unspecified hyperlipidemia Surgical History Surgical History H/O vagotomy 1964 for Hx of cholecystectomy Family History Family History Father No problems noted. Mother No problems noted. Sibling No problems noted. Other Diabetes mellitus Family history of Parkinson's disease Family history of malignant neoplasm of bone Social History Social History Smoking packs per day: 3 Smoking cigarettes per day: 60.0 Years smoked: 40 Smoking pack-years: 120.00 Smoking status: Former smoker Tobacco type: cigarettes Second hand tobacco smoke exposure: No Smoking end date: 02/20/99 Alcohol intake: former Substance use: never Substance use type: does not use Lack of Transportation: No Lack of Food: Never True Current Housing: I Have Housing Concerned About Future Housing: No Difficulty Paying Gas/Electric Bills: No Difficulty Paying for Meds: No Currently Unemployed: No Education: Bachelor's Degree Difficulty w/ Childcare or Family Care: No Living arrangements: with family Occupation/Education: retired Additional occupation/education comments: maintenance Gender identity (if verbalized by the patient): Male Spiritual care concerns: No Comments At time of signature, I have reviewed and agree with nursing past medical, surgical, social and family history unless otherwise noted. Please see nursing chart for further information. There is no relevant family history pertinent to the presenting complaint Exam Narrative: GENERAL: Well-appearing, well-nourished, and in no acute distress. HEAD: Normocephalic, atraumatic. EYES: EOMI. No redness or drainage. Conjunctivae normal. ENT: Mucous membranes pink and moist.
== END 2022-08-10 11:06 | disposition home or self-care (01) ==
PROVIDERS: Emergency Provider Nurse Practitioner; PCP Family Medicine
DX: L03.031 Cellulitis of right toe (principal); I12.9 Hypertensive chronic kidney disease with stage 1 through stage 4 chronic kidney disease, or unspecified chronic kidney disease; N18.30 Chronic kidney disease, stage 3 unspecified; N40.0 Benign prostatic hyperplasia without lower urinary tract symptoms; E78.49 Other hyperlipidemia; Z87.891 Personal history of nicotine dependence; Z79.82 Long term (current) use of aspirin
CPT/HCPCS: 99213; G0463